=== PATIENT | female | born 1980 | race Caucasian/White ===

== ENCOUNTER → 2016-07-12 | Outpatient (CLI) | payer MEDICAID ==
--- NOTE | 2016-07-17 13:07 | USB ---
Reason for exam: clinical finding. Indicated problem(s): pain in the right breast. Physical Findings: Nurse Summary: Prominent thickening right breast lower outer quadrant (nurse mm). US Breast RT Right breast ultrasound includes all four quadrants, the retroareolar region and axilla. Finding demonstrate a 0.5 x 0.3 x 0.3cm oval, cystic lesion at 6 o'clock, a 0.7 x 0.5 x 0.3cm oval, cystic lesion at 8 o'clock, a 0.6 x 0.5 x 0.2cm oval, cystic lesion at 8 o'clock, a 1.4 x 1.3 x 0.5cm oval, hypoechoic lesion in dense tissue at 10 o'clock and a 0.5 x 0.5 x 0.4cm oval, hypoechoic lesion at 11:30. These results were verbally communicated with the patient and result sheet given to the patient on 07/12/16. ASSESSMENT: Probably benign, BI-RAD 3 RECOMMENDATION: Follow-up diagnostic mammogram of the right breast.
--- NOTE | 2016-07-17 13:09 | MM ---
Reason for exam: additional evaluation requested from abnormal screening. MG 3D Diag Mammo W/Cad RT CC and MLO view(s) were taken of the right breast. The breast tissue is extremely dense which could obscure a lesion on mammography. There is no discrete abnormality. Posterior MLO intramammary lymph node. These results were verbally communicated with the patient and result sheet given to the patient on 07/12/16. ASSESSMENT: Benign, BI-RAD 2 RECOMMENDATION: Routine screening mammogram of both breasts in 1 year. Manage patient on a clinical basis.
== END | disposition home or self-care (01) ==
LOC: RADUSWWP 13:33
PROVIDERS: ATTEND Family Medicine
DX: N64.4 Mastodynia (principal); R92.8 Other abnormal and inconclusive findings on diagnostic imaging of breast; Z80.3 Family history of malignant neoplasm of breast
CPT/HCPCS: 76641; G0206; G0279

== ENCOUNTER → 2016-07-13 | Outpatient (CLI) | payer MEDICAID ==
[2016-07-13 12:05] LABS: Basophils % (A) 1 %; CH 30.3; CHCM 33.3; Eosinophils # (A) 0.2 k/uL (0-0.7); Eosinophils % (A) 4 %; HCT 42.5 % (34.0-46.0); HDW 2.42; HGB 13.9 gm/dL (11.4-16.0); Luc # (Auto) 0.15; Luc % (Auto) 2; Lymphocytes # (A) 2.6 k/uL (1.0-4.8); Lymphocytes % (A) 41 %; MCH 29.7 pg (25.0-35.0); MCHC 32.6 g/dL (31.0-37.0); MCV 91.2 fL (80.0-100.0); Monocytes # (A) 0.4 k/uL (0-1.0); Monocytes % (A) 6 %; Neutrophils % (A) 47 %; RBC 4.66 m/uL (3.80-5.40); RDW 12.7 % (11.5-15.5); WBC 6.4 k/uL (3.8-10.6)
[2016-07-13 12:21] LABS: ALT 26 U/L (9-52); AST 18 U/L (14-36); Alkaline Phosphatase 104 U/L (38-126); Anion Gap 11 mmol/L; Blood Urea Nitrogen 11 mg/dL (7-17); Calcium 9.7 mg/dL (8.4-10.2); Carbon Dioxide 25 mmol/L (22-30); Chloride 106 mmol/L (98-107); Cholesterol 208 mg/dL (<200); Glucose 108 mg/dL (74-99); HDL Cholesterol 54 mg/dL (40-60); Magnesium 2.1 mg/dL (1.6-2.3); Non-African American GFR(MDRD) >60 (>60 ml/min/1.73 sqM); Potassium 4.4 mmol/L (3.5-5.1); Sodium 142 mmol/L (137-145); Total Bilirubin 0.9 mg/dL (0.2-1.3); Total Protein 7.5 g/dL (6.3-8.2); Triglycerides 132 mg/dL (<150)
[2016-07-13 18:45] LABS: Hemoglobin A1C 5.1 % (4.2-6.1)
== END | disposition home or self-care (01) ==
LOC: LABWHC1 11:17
PROVIDERS: ATTEND Family Medicine
DX: E66.9 Obesity, unspecified (principal); G40.909 Epilepsy, unspecified, not intractable, without status epilepticus
CPT/HCPCS: 36415; 80053; 80061; 83036; 83735; 84443; 85025